=== PATIENT | female | born 1945 | race Caucasian/White ===

== ENCOUNTER 2021-08-13 10:15 | Observation (INO) ==
[~2021-08-13 10:15] MED LIST: Buffered Lidocaine 1% SYRIN 1 ml INTRADERM ONE; Lactated Ringers 1000 ml BAG 1,000 ML IV SCH
[2021-08-13] MEDS ORDERED: Midazolam 2 mg/2 ml VIAL 1 mg/ml 2 ml VIAL (2 mg) ONE (10:38)
[2021-08-13] MEDS ORDERED: Dexamethasone IV 4 MG/ML VIAL 1 ml VIAL ONE (10:38)
[2021-08-13] MEDS ORDERED: Ondansetron 4 mg VIAL 2 MG/ML 2 ml VIAL ONE (10:38)
[2021-08-13] MEDS ORDERED: Acetaminophen IV 1 GM/100ML 100 ML IV ONE (10:38)
[2021-08-13] MEDS ORDERED: Propofol 10 MG/ML 20 ML BTL ONE ×3 (10:38→15:20)
[2021-08-13] MEDS ORDERED: Lidocaine 2% PF 5 ML VIAL ONE (10:38)
[2021-08-13] MEDS ORDERED: fentaNYL 100 mcg/2 ml 50 MCG/ML VIAL ONE (10:38)
[2021-08-13] MEDS ORDERED: ceFAZolin 1 GM ADVAN 1 GM ADDV.VIAL IVPB ONE (10:51)
[2021-08-13] MEDS ORDERED: Lidocaine 1% MPF 5 ML VIAL ONE (11:47)
[2021-08-13] MEDS ORDERED: ROPIVACAINE 5 MG/ML 30 ML BTL (0.5%) ONE (11:49)
[2021-08-13] MEDS ORDERED: Bupivacaine 0.5% SDV PF 30ML VIAL ONE (11:53)
[2021-08-13] MEDS ORDERED: Ropivacaine 5 MG/ML 20 ML VIAL 0.5% (100 MG) ONE (12:33)
[2021-08-13] MEDS ORDERED: Ondansetron 4 mg VIAL 2 MG/ML 2 ml VIAL IV PRN ×2 (15:08→15:39)
[2021-08-13] MEDS ORDERED: HYDROmorphone 1 MG/1 ML SYRINGE IV PRN (15:08)
[2021-08-13] MEDS ORDERED: DiMENhydriNATE IV 50 mg/ml 1 ml VIAL IV PUSH PRN (15:08)
[2021-08-13] MEDS ORDERED: fentaNYL 100 mcg/2 ml 50 MCG/ML VIAL IV PRN (15:08)
[2021-08-13] MEDS ORDERED: Naloxone 0.4 mg VIAL 0.4 mg/ml 1 ml VIAL IV PRN (15:08)
[2021-08-13] MEDS ORDERED: Acetaminophen IV 1 GM/100ML 100 ML IV PRN (15:08)
[2021-08-13] MEDS ORDERED: Lactulose 30 ml UDC PO PRN (15:39)
[2021-08-13] MEDS ORDERED: Magnesium Hydroxide LIQ 30 ML UDC PO PRN (15:39)
[2021-08-13] MEDS ORDERED: diPHENhydraMINE 25 mg TAB PO PRN (15:39)
[2021-08-13] MEDS ORDERED: Ondansetron ODT 4 mg TAB 4 MG TAB PO PRN (15:39)
[2021-08-13] MEDS ORDERED: diPHENhydraMINE IV 50 MG/ML 1 ml VIAL (BENADRYL) IV PRN (15:39)
[2021-08-13] MEDS: Lactated Ringers 1000 ml BAG 1,000 ML IV SCH (18:10)
[2021-08-13] MEDS: Magnesium Hydroxide LIQ 30 ML UDC PO SCH (20:00)
[2021-08-13] MEDS: ceFAZolin 1 GM ADVAN 1 GM in NS 0.9% 50 ML 50 ML IVPB SCH (21:00)
[2021-08-14] MEDS: ceFAZolin 1 GM ADVAN 1 GM in NS 0.9% 50 ML 50 ML IVPB SCH ×2 (04:40→12:56)
[2021-08-14] MEDS: Lactated Ringers 1000 ml BAG 1,000 ML IV SCH ×2 (05:56→05:57)
[2021-08-14 06:47] LABS: Hematocrit 31 % (35-47); Hemoglobin 10.4 g/dL (12.0-16.0); Mean Platelet Volume 9.3 fL (7.4-10.4); Platelet Count 176 10^3/uL (150-450)
[2021-08-14 06:56] LABS: Calcium 8.9 mg/dL (8.6-10.3); Potassium 4.4 mmol/L (3.5-5.0); eGFR CKD-EPI 62.9 (>60)
[2021-08-14] MEDS: Magnesium Hydroxide LIQ 30 ML UDC PO SCH (08:37)
[2021-08-14] MEDS ORDERED: CMCS: Anastrozole 1 mg TAB (NF) PO SCH (09:00)
[2021-08-14] MEDS ORDERED: Vitamin THERAPEUTIC TAB PO SCH (09:00)
[2021-08-14 11:05] VITALS: BP 102/54
== END 2021-08-14 16:55 | disposition home or self-care (01) ==
LOC: OR 10:15 → SSU 10:15
PROVIDERS: ADMIT Orthopaedic Surgery Adult Reconstructive Orthopaedic Surgery; ATTEND Orthopaedic Surgery Adult Reconstructive Orthopaedic Surgery

== ENCOUNTER 2024-06-09 05:40 | Observation (INO) ==
[~2024-06-09 05:40] MED LIST changes: -Buffered Lidocaine 1% SYRIN 1 ml INTRADERM ONE; -Lactated Ringers 1000 ml BAG 1,000 ML IV SCH; +NS 0.45% 1000 ml BAG 1,000 ML IV SCH; +Naloxone 0.4 mg VIAL 0.4 mg/ml 1 ml VIAL IV PRN; +Ondansetron 4 mg VIAL 2 MG/ML 2 ml VIAL IV PRN; +fentaNYL 100 mcg/2 ml 50 MCG/ML VIAL IV PRN
[2024-06-09] MEDS ORDERED: ROPIVACAINE 5 MG/ML 30 ML BTL (0.5%) ONE (05:58)
[2024-06-09] MEDS ORDERED: ceFAZolin 2 GM PREMIX 2 GM/50 ML BAG ONE (06:10)
[2024-06-09] MEDS ORDERED: Tranexamic Acid 1 GM/100ML BAG 2,000 MG/200 ML BAG IV ONE (06:10)
[2024-06-09] MEDS: Lactated Ringers 1000 ml BAG 1,000 ML IV SCH ×2 (06:35→13:03)
[2024-06-09] MEDS ORDERED: Lidocaine 2% PF 5 ML VIAL ONE (06:51)
[2024-06-09] MEDS ORDERED: Sevoflurane BOTTLE ONE (06:54)
[2024-06-09] MEDS ORDERED: Phenylephrine IV 10 MG/ML 1 ml VIAL ONE (07:00)
[2024-06-09] MEDS ORDERED: KETAMINE HCL 10 MG/ML 20 ml VIAL (200 MG) ONE (07:02)
[2024-06-09] MEDS ORDERED: Midazolam 5 mg/5 ml VIAL 1 mg/ml 5 ml VIAL (5 mg) ONE (07:04)
[2024-06-09] MEDS ORDERED: Morphine 2 MG/ML SYRINGE IV PRN (07:42)
[2024-06-09] MEDS ORDERED: Calcium Carb (TUMS) 500 mg CHEW TAB PO PRN (07:42)
[2024-06-09] MEDS ORDERED: Ondansetron 4 mg VIAL 2 MG/ML 2 ml VIAL IV PRN (07:42)
[2024-06-09] MEDS ORDERED: Magnesium Hydroxide LIQ 30 ML UDC PO PRN (07:42)
[2024-06-09] MEDS ORDERED: Ondansetron ODT 4 mg TAB 4 MG TAB PO PRN (07:42)
[2024-06-09] MEDS ORDERED: Lactulose 30 ml UDC PO PRN (07:42)
[2024-06-09 08:03] LABS: Rapid COVID-19 Molecular Undetected (Undetected)
[2024-06-09] MEDS ORDERED: fentaNYL 100 mcg/2 ml 50 MCG/ML VIAL ONE (08:22)
[2024-06-09] MEDS ORDERED: Lidocaine 2% PF 10 ML AMP (OR) ONE (08:23)
[2024-06-09] MEDS ORDERED: Propofol 10 MG/ML 20 ML BTL ONE ×2 (08:40→10:02)
[2024-06-09] MEDS: Acetaminophen IV 1 GM/100ML 1,000 MG/100 ML BAG IV ONE (13:07)
[2024-06-09] MEDS: Magnesium Hydroxide LIQ 30 ML UDC PO SCH (13:08)
[2024-06-09] MEDS: Buffered Lidocaine 1% SYRIN 1 ml INTRADERM ONE (13:08)
[2024-06-09] MEDS: Vitamin THERAPEUTIC TAB PO SCH (13:08)
[2024-06-09] MEDS: ceFAZolin 2 GM PREMIX 2 GM/50 ML BAG IV SCH (17:21)
[2024-06-09 17:26] VITALS: BP 120/53
== END 2024-06-09 19:45 | disposition home or self-care (01) ==
LOC: OR 05:40 → SSU 05:40
PROVIDERS: ADMIT Orthopaedic Surgery Adult Reconstructive Orthopaedic Surgery; ATTEND Orthopaedic Surgery Adult Reconstructive Orthopaedic Surgery